=== PATIENT | female | born 1960 | race Caucasian/White ===

== ENCOUNTER → 2023-10-24 13:50 | Outpatient (REF) | payer OTHER, SELFPAY | LOC: RAD 13:50 | PROVIDERS: ATTENDING PHYSICIAN Student in an Organized Health Care Education/Training Program | DX: M79.661 Pain in right lower leg (principal) | CPT/HCPCS: 93971 ==

== ENCOUNTER 2023-10-29 11:01 | Emergency (ER) | payer OTHER, SELFPAY ==
[2023-10-29 11:06] VITALS: BP 145/79
--- NOTE | 2023-10-29 12:57 | ED.MUSCINJ ---
HPI-Injury
General
Chief Complaint: Extremity Pain (non-traumatic)
Source: patient
Exam Limitations: none
Time Seen by Provider: 10/29/23 12:42
Travel History
Have you had any contact with someone who has COVID-19?: No
Do you have any symptoms of coronavirus? Fever > 100 degrees, chills, cough, shortness of breath, sore throat, loss of taste or smell, muscle aches, or headache?: No
History of Present Illness-Injury
Initial Injury comments:
63-year-old female otherwise quite healthy presents complaining of pain to the right lower leg that radiates from the proximal lateral collins down into the dorsum of the foot. This is usually made worse with sitting. She denies any tingling or
numbness. She denies any back pain chest pain or shortness of breath. She does note several recent extended flights from the and back in the [facility]. No fever no redness or swelling. No known injury. No other complaints at this
time
Phy Exam
Physical Exam
Physical Exam:
General: Well-appearing female no acute respiratory distress
HEENT: Normocephalic atraumatic
Musculoskeletal exam: No tenderness over the posterior aspect of the knee good range of motion right ankle. No reproducible tenderness over the lateral right collins
Vascular: 2+ dorsalis pedis pulse right foot
Extremities: No cyanosis
Skin: Warm no rash
Injury Course
Orders/Labs/Results
Orders:
Orders
10/29/23 12:57
Venous Doppler Lwr Ext Rt [US Periph Venous LOWER Ext RT] Urgent
Comment:
Reason For Exam: pain in leg
MDM/Problems Addressed
Differential Diagnosis Includes:
Persistent right collins and calf pain following recent extended flights. 5 days ago, she had an ultrasound of the right leg which was negative for DVT will recheck this today. If negative consider radiculopathy or knee strain radiating pain into the
leg
*Critical Care Note
Total Time (30-74mins, 75-104mins- exclusive of procedures): Not Applicable
Update Note
Update Note:
Ultrasound leg negative for DVT. Other items causing the pain could be radiculopathy versus muscular strain versus meniscal injury. Patient was pain-free upon my exam. Recommend anti-inflammatories and follow-up. Stable for discharge
ED Attending Note
-
Portions of this chart may have been created with voice recognition software.� Occasional wrong word or��sound alike� substitutions may have occurred due to the inherent limitations of voice recognition software.
Discharge Plan
Departure
Patient Disposition: Home (Routine Discharge)
Date of Disposition: 10/29/23
Time of Disposition: 16:19
Patient with high blood pressure during this ER visit?: No
Discharge Problem:
Leg pain
Referrals:
Estela Fleming PA-C [Family Provider] -
Activity Restrictions/Additional Instructions:
Use anti-inflammatories as needed. Return if worse otherwise follow-up with your doctor or orthopedics
Interventions
Interventions:
*Risk Screen - Suicide Last Done: 10/29/23 12:54
*General Assessment Last Done: 10/29/23 12:54
*Neglect/Abuse Screening Last Done: 10/29/23 12:54
*ED COVID-19 Vaccine History Last Done: 10/29/23 11:06
ED-Skin Assessment Last Done: 10/29/23 12:54
ED-Peripheral Vascular Assessment Last Done: 10/29/23 12:55
ED-Musculoskeletal Assessment Last Done: 10/29/23 12:54
Discharge Date and Time
Print Language: ANGUILLAN
== END 2023-10-29 16:48 | disposition home or self-care (01) ==
LOC: EMR 11:01
PROVIDERS: EMERGENCY PHYSICIAN Emergency Medicine; FAMILY PHYSICIAN Student in an Organized Health Care Education/Training Program
DX: M79.661 Pain in right lower leg (principal); Z88.8 Allergy status to other drugs, medicaments and biological substances
CPT/HCPCS: 99284; 93971

== ENCOUNTER → 2023-10-31 17:29 | Outpatient (REF) | payer OTHER, SELFPAY | LOC: RAD 17:29 | PROVIDERS: ATTENDING PHYSICIAN Student in an Organized Health Care Education/Training Program | DX: M79.604 Pain in right leg (principal) | CPT/HCPCS: 73590 ==

== ENCOUNTER 2023-11-11 17:58 | Emergency (ER) | payer OTHER, SELFPAY ==
[2023-11-11 18:03] VITALS: BP 146/93
--- NOTE | 2023-11-11 18:41 | ED.GENMED ---
History of Present Illness
<Urvasih Burgess PA-C - Last Filed: 11/11/23 20:24>
General
Chief Complaint: Extremity Pain (non-traumatic)
Source: patient
Exam Limitations: none
Time Seen by Provider: 11/11/23 18:29
Nursing documentation reviewed up to this point in time: agreed with
Travel History
Have you had any contact with someone who has COVID-19?: No
Do you have any symptoms of coronavirus? Fever > 100 degrees, chills, cough, shortness of breath, sore throat, loss of taste or smell, muscle aches, or headache?: No
History of Present Illness
History of Present Illness:
63-year-old female with a history of ulcerative colitis is presenting emergency department today with right lower leg pain for the past 2 weeks. Patient states that she feels the pain on her right lateral leg which she starts to feel when she gets
up from sitting for a while many hours, or it will come on randomly. It is not related to walking or activity. Patient denies any recent history of trauma. Patient denies any fevers or chills, any rashes. Patient was seen here in the emergency
department on October 28 for this pain and they did a DVT study of the lower extremity which was negative. Patient does note that she has been flying back and forth from the [place] recently. Patient denies any swelling of the lower
extremities. Patient saw her primary who referred her to the orthopedist and she got MRI which revealed possible decreased popliteal blood flow and was referred to the emergency department for ultrasound. Patient denies any paresthesias in her
lower extremities.
Review of Systems
<Urvashi Burgess PA-C - Last Filed: 11/11/23 20:24>
Review of Systems
All Other Systems: ROS reviewed and negative except as documented in HPI and ROS
Phy Exam
<Urvashi Burgess PA-C - Last Filed: 11/11/23 20:24>
Physical Exam
Physical Exam:
General: Patient is well appearing and in no acute distress; non-toxic
Skin: Warm and dry, no rashes or lesions.
Head: Normocephalic, atraumatic
Eyes: Sclera non-icteric. EOMs intact.
Cardiac: Regular rate
Peripheral Vascular: 2+ dorsalis pedis and posterior tibial pulses bilaterally,
Pulm: Normal respiratory effort
Abdomen: No abdominal tenderness
Musculoskeletal: No tenderness palpation bilateral lower extremities. Full range of motion of bilateral lower extremities. No lower extremity swelling or erythema, negative Homans' sign bilaterally.
Neuro: CN II-XII intact, no focal neurologic deficits.
Psychiatric: Appropriate mood and affect.
Course
<Urvashi Burgess PA-C - Last Filed: 11/11/23 20:24>
Orders/Labs/Results
Orders:
Orders
11/11/23 18:45
US Periph Venous LOWER Ext RT Urgent
Comment:
Reason For Exam: Right lower ext pain, decreased pop flow on MRI
Vital Signs
Initial and Last Documented VS:
Initial Vital Signs
Temp Pulse Resp BP Pulse Ox
97.8 F 88 16 146/93 99
11/11/23 18:03 11/11/23 18:03 11/11/23 18:03 11/11/23 18:03 11/11/23 18:03
Last Documented Vital Signs
Temp Pulse Resp BP Pulse Ox
97.8 F 88 16 146/93 99
11/11/23 18:03 11/11/23 18:03 11/11/23 18:03 11/11/23 18:03 11/11/23 18:03
<Brian Razo DO - Last Filed: 11/11/23 19:36>
Orders/Labs/Results
Orders:
Orders
11/11/23 18:45
US Periph Venous LOWER Ext RT Urgent
Comment:
Reason For Exam: Right lower ext pain, decreased pop flow on MRI
Vital Signs
Initial and Last Documented VS:
Initial Vital Signs
Temp Pulse Resp BP Pulse Ox
97.8 F 88 16 146/93 99
11/11/23 18:03 11/11/23 18:03 11/11/23 18:03 11/11/23 18:03 11/11/23 18:03
Last Documented Vital Signs
Temp Pulse Resp BP Pulse Ox
97.8 F 88 16 146/93 99
11/11/23 18:03 11/11/23 18:03 11/11/23 18:03 11/11/23 18:03 11/11/23 18:03
<Urvashi Burgess PA-C - Last Filed: 11/11/23 20:24>
MDM/Problems Addressed
Differential Diagnosis Includes:
Differentials include musculoskeletal sprain/strain, osteoarthritis, chronic venous stasis, DVT, superficial phlebitis,
MDM/Problems Addressed:
leg pain, abnormal MRI finding

physical exam findings not consistent with DVT or acute arterial occlusion--will obtain peripheral venous study as requested by physician considering abnormal MRI finding
Chronic conditions affecting care:
ulcerative colitis
Acute Exacerbation and/or Progression of Chronic Illness:
n/a
<SURY Hernandez Last Filed: 11/11/23 20:24>
*Pulse Oximetry
Patient hypoxic: no
*Critical Care Note
Total Time (30-74mins, 75-104mins- exclusive of procedures): Not Applicable
Data Reviewed
Review of Other/Old Records Reveals: Records (Reviewed previous record from ER physician documentation on 10/29/2023, no evidence of right lower extremity DVT)
<SURY Hernandez Last Filed: 11/11/23 20:24>
Patient Management
Escalation/DeEscalation of care consider admission/obs:
63-year-old female with a history of ulcerative colitis is presenting emergency department today with right lower leg pain for the past 2 weeks. Patient presents today because outpatient MR coffey demonstrated decreased popliteal flow. Her physician
directed her to present to emergency department for ultrasound. Ultrasound today demonstrated patency of flow in the right common femoral popliteal peroneal and posterior tibial veins, no DVT. Patient stable for discharge to follow-up with
primary. Patient in agreement with plan, all questions answered.
ED Attending Note
<Urvashi Burgess PA-C - Last Filed: 11/11/23 20:24>
-
Portions of this chart may have been created with voice recognition software.� Occasional wrong word or��sound alike� substitutions may have occurred due to the inherent limitations of voice recognition software.
<Brian Razo DO - Last Filed: 11/11/23 19:36>
ED Attending Note
Patient seen and examined by attending physician: Yes
I performed the substantive portion of visit, reviewed & personally made and approve the management plan that is documented in note by myself or ZIGGY.: Yes
ED Attending Note:
I have seen and evaluated the patient with a [id number] encounter. I have spoken to the advance practicer provider and involved in the medical history, the physical exam, medical decision making.
Evaluation and management service: agree unless noted differently below.
Results interpretation: agree unless noted differently below.
Focused HPI: 63-year-old female presenting with intermittent right leg pain. It does occur when she stands up after seated for prolonged time. She has since followed up with orthopedics. She has already had an MRI. She was sent in to rule out DVT
Physical exam: Sitting in bed comfortably. No leg edema or unilateral tenderness. Distal pulses +2 in both legs
Medical Decision Making: We discussed likely muscular versus nerve pain. I have low suspicion for peripheral vascular disease or DVT. Will obtain ultrasound
Discharge Plan
Departure
Patient Disposition: Home (Routine Discharge)
Date of Disposition: 11/11/23
Time of Disposition: 20:17
Patient with high blood pressure during this ER visit?: Yes
Condition: Good
Discharge Problem:
Pain of right calf
Instructions: Muscle and Bone Pain (DC), Superficial vein phlebitis and thrombosis, BLOOD PRESSURE
Prescriptions:
No Action
meloxicam 7.5 mg tablet
7.5 mg PO BID Qty: 14 0RF
Referrals:
Estela Fleming PA-C [Family Provider] -
Activity Restrictions/Additional Instructions:
I recommend trying trying ibuprofen for your pain. You can take one 200 mg tablet every 4-6 hours as needed, you can increase it to 400 mg every 4-6 hours if needed. Do not exceed 1200 mg/day.
Your ultrasound today was negative, your popliteal veins are patent.
Please follow-up with your primary care provider.
Interventions
Interventions:
ED-Skin Assessment Last Done: 11/11/23 18:40
ED-Peripheral Vascular Assessment Last Done: 11/11/23 18:40
ED-Musculoskeletal Assessment Last Done: 11/11/23 18:40
Discharge Date and Time
Print Language: BELARUSIAN
== END 2023-11-11 20:34 | disposition home or self-care (01) ==
LOC: EMR 17:58
PROVIDERS: EMERGENCY PHYSICIAN Student in an Organized Health Care Education/Training Program; FAMILY PHYSICIAN Student in an Organized Health Care Education/Training Program
DX: M79.661 Pain in right lower leg (principal); R03.0 Elevated blood-pressure reading, without diagnosis of hypertension; K51.90 Ulcerative colitis, unspecified, without complications
CPT/HCPCS: 99284; 93971

== ENCOUNTER → 2023-11-23 14:50 | Outpatient (REF) | payer OTHER, SELFPAY | LOC: RAD 14:50 | PROVIDERS: ATTENDING PHYSICIAN Registered Nurse; FAMILY PHYSICIAN Physician Assistant Medical | DX: M79.604 Pain in right leg (principal) | CPT/HCPCS: 93970 ==

== ENCOUNTER → 2023-12-22 17:20 | Outpatient (REF) | payer OTHER, SELFPAY | LOC: WDC 17:20 | PROVIDERS: ATTENDING PHYSICIAN Obstetrics & Gynecology; FAMILY PHYSICIAN Physician Assistant Medical | DX: Z12.31 Encounter for screening mammogram for malignant neoplasm of breast (principal) | CPT/HCPCS: 77063; 77067 ==

== ENCOUNTER → 2024-03-19 06:44 | Outpatient (REF) | payer OTHER, SELFPAY | LOC: EMG 06:44 | PROVIDERS: ATTENDING PHYSICIAN Internal Medicine; FAMILY PHYSICIAN Physician Assistant Medical | DX: G62.9 Polyneuropathy, unspecified (principal); M79.604 Pain in right leg; R20.2 Paresthesia of skin | CPT/HCPCS: 95886; 95911 ==

== ENCOUNTER → 2024-08-04 11:26 | Outpatient (REF) | payer OTHER, SELFPAY | LOC: RAD 11:26 | PROVIDERS: ATTENDING PHYSICIAN Physician Assistant Medical | DX: Z00.00 Encounter for general adult medical examination without abnormal findings (principal); M79.604 Pain in right leg | CPT/HCPCS: 72110 ==

== ENCOUNTER → 2024-08-17 15:52 | Outpatient (REF) | payer OTHER, SELFPAY | LOC: RAD 15:52 | PROVIDERS: ATTENDING PHYSICIAN Physician Assistant Medical | DX: M25.551 Pain in right hip (principal) | CPT/HCPCS: 73522 ==

== ENCOUNTER → 2024-12-25 19:10 | Outpatient (REF) | payer OTHER, SELFPAY | LOC: WDC 19:10 | PROVIDERS: ATTENDING PHYSICIAN Physician Assistant Medical; PRIMARYCARE PHYSICIAN Obstetrics & Gynecology | DX: Z12.31 Encounter for screening mammogram for malignant neoplasm of breast (principal) | CPT/HCPCS: 77063; 77067 ==

== ENCOUNTER 2025-01-04 06:24 | Day surgery (SDC) | payer OTHER, SELFPAY | END 2025-01-04 10:00 | disposition home or self-care (01) | LOC: GI 06:24 | PROVIDERS: ATTENDING PHYSICIAN Internal Medicine Gastroenterology | DX: K51.00 Ulcerative (chronic) pancolitis without complications (principal); D12.3 Benign neoplasm of transverse colon; K63.5 Polyp of colon; Q43.8 Other specified congenital malformations of intestine | CPT/HCPCS: 45380; 88305 ==

== ENCOUNTER → 2025-06-04 11:09 | Outpatient (REF) | payer OTHER, SELFPAY | LOC: REG 11:09 | PROVIDERS: ATTENDING PHYSICIAN Internal Medicine; FAMILY PHYSICIAN Physician Assistant Medical | DX: M54.50 Low back pain, unspecified (principal) | CPT/HCPCS: 72100; 72202 ==